=== PATIENT | female | born 1960 | race Hispanic/Latino ===

== ENCOUNTER → 2018-01-23 | Outpatient (CLI) | payer OTHER ==
[~2018-01-23] MED LIST: METFORMIN HCL500 M3; Z.0.LANSOPRAZOLE30 M PO; Z.0.LISINOPRIL20 MG PO; Z.0.METOPROLOL TART2 PO
--- NOTE | 2018-01-23 15:28 | Diagnostic Imaging Report ---
PROCEDURE:X-RAY UNILATERAL RIBS WITH CHEST X-RAY COMPARISON:None. INDICATIONS:RIGHT SIDE RIB PAIN FINDINGS: BONES: Normal mineralization. No acute fracture or dislocation. Joint spaces are within normal limits. SOFT TISSUES:Negative. OTHER:Negative. CONCLUSION: No definite rib fractures. Dictated by: Tima Oakley M.D. on 01/23/2018 at 15:31 Electronically approved by: Tima Oakley M.D. on 01/23/2018 at 15:31
== END ==
LOC: RAD 13:15
PROVIDERS: ATTEND Internal Medicine
DX: R07.89 Other chest pain (principal)
CPT/HCPCS: 71101

== ENCOUNTER → 2018-02-02 | Outpatient (CLI) | payer OTHER | LOC: MAMMO 13:03 | PROVIDERS: ATTEND Internal Medicine | DX: Z12.31 Encounter for screening mammogram for malignant neoplasm of breast (principal) | CPT/HCPCS: 77067 ==

== ENCOUNTER → 2018-02-15 | Outpatient (CLI) | payer OTHER ==
--- NOTE | 2018-02-15 15:13 | Diagnostic Imaging Report ---
#[id number] - MGDXLT #UNILATERAL LEFT DIGITAL DIAGNOSTIC MAMMOGRAM WITH SPOT COMPRESSION: 02/15/2018 Comparison is made to exams dated: 02/02/2018 mammogram and 02/02/2017 mammogram - [facility]. Current study contains 3 films. There are scattered fibroglandular elements in the left breast. Focal spot compression and LLM view confirms a small nodule in the left breast measuring 4 mm. No additional findings in the left breast are seen. IMPRESSION: INCOMPLETE: NEEDS ADDITIONAL IMAGING EVALUATION Indeterminate small nodule in the left breast. Ultrasound is recommended and will be performed today. Flaquito Rm Jr., D.O. cw/:02/15/2018 12:20:22 Manufacturing Plant Technician: Rocio COWAN)(M), [facility] letter sent: Additional Imaging Needed Mammogram BI-RADS: 0 Indeterminate
--- NOTE | 2018-02-15 15:13 | Diagnostic Imaging Report ---
#[id number] - USBRELIMLT ULTRASOUND OF THE LEFT BREAST : 02/15/2018 Comparison is made to exams dated: 02/15/2018 mammogram and 02/02/2018 mammogram - [facility]. Color flow and real-time ultrasound were performed on the left breast with scanning from 9 o'clcok to 3 o'clock. At the 12 o'clock position 1 cm from the nipple is a hypechoic nodule measuring 3 x 2 x 3 mm in size. This may represent a septated cyst or lymph node. A suspicious mass is less likely. However, since it is a new finding on the recent mammogram close follow up is required. IMPRESSION: PROBABLY BENIGN - FOLLOW-UP RECOMMENDED A follow-up left breast mammogram and an ultrasound in 6 months is recommended to demonstrate stability. The patient was notified of these findings at the time of interpretation. Flaquito Rm Jr., D.O. cw/:02/15/2018 13:23:57 Restaurant District Manager: ÓSCAR DENT, [facility] letter sent: Followup Recommended Ultrasound BI-RADS: 3 Probably benign
== END ==
LOC: MAMMO 10:23
PROVIDERS: ATTEND Internal Medicine
DX: N63.20 Unspecified lump in the left breast, unspecified quadrant (principal)

== ENCOUNTER → 2018-08-28 | Outpatient (CLI) | payer OTHER ==
--- NOTE | 2018-08-29 08:15 | Diagnostic Imaging Report ---
#[id number] - MGDXLT #UNILATERAL LEFT DIGITAL DIAGNOSTIC MAMMOGRAM WITH CAD SHORT-TERM FOLLOW-UP: 08/28/2018 Comparison is made to exams dated: 02/15/2018 ultrasound, 02/15/2018 mammogram, 02/02/2018 mammogram and 02/02/2017 mammogram - [facility]. Current study contains 3 films. There are scattered fibroglandular elements in the left breast. Current study was also evaluated with a Computer Aided Detection (CAD) system. There are several nodules around the nipple. No significant masses, calcifications, or other findings are seen in the breast. IMPRESSION: INCOMPLETE: NEEDS ADDITIONAL IMAGING EVALUATION Follow-up breast ultrasound is recommended and will be performed today. Flaquito Rm Jr., D.O. cw/:08/28/2018 15:23:26 Hospice Care Transitions Coordinator: Rocio COWAN)(M), [facility] Mammogram BI-RADS: 0 Indeterminate
--- NOTE | 2018-08-29 08:16 | Diagnostic Imaging Report ---
#[id number] - USBRELIMLT ULTRASOUND OF THE LEFT BREAST : 08/28/2018 Comparison is made to exams dated: 08/28/2018 mammogram, 02/15/2018 ultrasound and 02/15/2018 mammogram - [facility]. Color flow and real-time ultrasound were performed on the left breast in the area in question around the 12 o'clock position. -Stable appearance of 4 x 3 x 4 mm nodule 1 cm from the nipple -At 12 o'clock 4 cm from the nipple there is a benign appearing hypoechoic nodule measuring 6 x 2 x 6 mm. Faint associated calcification present. -At 12 o'clock 6 cm from the nipple there is a benign appearing hypoechoic nodule measuring 5 x 2 x 6 mm. IMPRESSION: PROBABLY BENIGN - FOLLOW-UP RECOMMENDED A follow-up mammogram (bilateral) and an ultrasound in 6 months is recommended to demonstrate stability. The patient was notified of these findings at the time of the examination. Flaquito Rm Jr., D.O. cw/:08/28/2018 15:19:30 Cartridge Maker: Ngoc Kelly RDMS, [facility] letter sent: Followup Recommended Ultrasound BI-RADS: 3 Probably benign
== END ==
LOC: MAMMO 08:39
PROVIDERS: ATTEND Internal Medicine
DX: R92.8 Other abnormal and inconclusive findings on diagnostic imaging of breast (principal)

== ENCOUNTER 2018-11-15 17:52 | Emergency (ER) | payer OTHER ==
[~2018-11-15] VITALS: Ht 160 cm; Wt 83.5 kg
--- OUTSIDE RECORDS SUMMARY | 2018-11-15 17:54 | XMS REPORT ---
Author Author [facility] Address Unknown Phone Unavailable Care Team Providers Care Flag Maker Name Role Phone Ken CASTRO Unavailable Unavailable Problems This patient has no known problems. Allergies, Adverse Reactions, Alerts This patient has no known allergies or adverse reactions. Medications This patient has no known medications. Results Test Description Test Time Test Comments Text Results Atomic Results Result Comments US BREAST LIMITED LEFT 2018-08-28 10:22:00 [place] [address] Patient Name: MARY JEAN MR #: [id number] : 1960 Age/Sex: 58/F Req #: [id number] Adm Physician: Ordered by: NIKKO CASTRO MD Report #: [id number] Location: MAMMO Room/Bed: Procedure: [id number] US/US BREAST LIMITED LEFT Exam Date: Exam Time: REPORT STATUS: Signed #[id number] - USBRELIMLT ULTRASOUND OF THE LEFT BREAST : 08/28/2018 Comparison is made to exams dated: 08/28/2018 mammogram, 02/15/2018 ultrasound and 02/15/2018 mammogram - [facility]. Color flow and real-time ultrasound were performed on the left breast in the area in question around the 12 o'clock position. -Stable appearance of 4 x 3 x 4 mm nodule 1 cm from the nipple -At 12 o'clock 4 cm from the nipple there is a benign appearing hypoechoic nodule measuring 6 x 2 x 6 mm. Faint associated calcification present. -At 12 o'clock 6 cm from the nipple there is a benign appearing hypoechoic nodule measuring 5 x 2 x 6 mm. IMPRESSION: PROBABLY BENIGN - FOLLOW-UP RECOMMENDED A follow-up mammogram (bilateral) and an ultrasound in 6 months is recommended to demonstrate stability. The patient was notified of these findings at the time of the examination. Dottie Rm Jr., D.O. cw/:08/28/2018 15:19:30 Plumber'S Helper: Ngoc Kelly [facility], [facility] letter sent: Followup Recommended Ultrasound BI-RADS: 3 Probably benign Dictated By: DOTTIE RM DO 18 Transcribed By: ROBBY on 08/28/181518 COPY TO: NIKKO CASTRO MD MAMMOGRAPHY DIGITAL DX UNI LT 2018-08-28 09:24:00 [place] [address] Patient Name: MARY JEAN MR #: [id number] : 1960 Age/Sex: 58/F Req #: [id number] [facility] Physician: Ordered by: NIKKO CASTRO MD Report #: [id number] Location: MAMMO Room/Bed: Procedure: [id number] MG/MAMMOGRAPHY DIGITAL DX UNI LT Exam Date: 08/28/18 Exam Time: 0843 REPORT STATUS: Signed #[id number] - MGDXLT #UNILATERAL LEFT DI GITAL DIAGNOSTIC MAMMOGRAM WITH CAD SHORT-TERM FOLLOW-UP: 08/28/2018 Comparison is made to exams dated: 02/15/2018 ultrasound, 02/15/2018 mammogram, 02/02/2018 mammogram and 02/02/2017 mammogram - [facility]. Current study contains 3 films. There are scattered fibroglandular elements in the left breast. Current study was also evaluated with a Computer Aided Detection (CAD) system. There are several nodules around the nipple. No significant masses, calcifications, or other findings are seen in the breast. IMPRESSION: INCOMPLETE: NEEDS ADDITIONAL IMAGING EVALUATION Follow-up breast ultrasound is recommended and will be performed today. Dottie Rm Jr., D.O. cw/:08/28/2018 15:23:26 Plumber'S Helper: Rocio MENG(Lam)(Ken), [facility] Mammogram BI-RADS: 0 Indeterminate Dictated By: DOTTIE RM DO 1523 Transcribed By: ROBBY on 08/28/18 1523 COPY TO: NIKKO CASTRO MD US BREAST LIMITED LEFT 2018-02-15 11:44:00 [place] [address] Patient Name: MARY JEAN MR #: [id number] : 1960 Age/Sex: 57/F Req #: [id number] Adm Physician: Ordered by: NIKKO CASTRO MD Report #: [id number] Location: MAMMO Room/Bed: Procedure: [id number] US/US BREAST LIMITED LEFT Exam Date: Exam Time: REPORT STATUS: Signed #[id number] [facility] : 02/15/2018 Comparison is made to exams dated: 02/15/2018 mammogram and 02/02/2018 mammogram - [facility]. Color flow and real-time ultrasound were performed on the left breast with scanning from 9 o'clcok to 3 o'clock. At the 12 o'clock position 1 cm from the nipple is a hypechoic nodule measuring 3 x 2 x 3 mm in size. This may represent a septated cyst or lymph node. A suspicious mass is less likely. However, since it is a new finding on the recent mammogram close follow up is required. IMPRESSION: PROBABLY BENIGN - FOLLOW-UP RECOMMENDED A follow-up left breast mammogram and an ultrasound in 6 months is recommended to demonstrate stability. The patient was notified of these findings at the time of inter pretation. Dottie Rm Jr., D.O. cw/:02/15/2018 13:23:57 Plumber'S Helper: ÓSCAR DENT [facility] letter sent: Followup Recommended Ultrasound BI-RADS: 3 Probably benign Dictated By: DOTTIE RM DO 1323 Transcribed By: ROBBY on 02/15/18 1323 COPY TO: NIKKO CASTRO MD MAMMOGRAPHY DIGITAL DX [facility] 2018-02-15 11:00:00 [place] [address] Patient Name: MARY JEAN MR #: [id number] : 1960 Age/Sex: 57/F Req #: [id number] [facility] Physician: Ordered by: NIKKO CASTRO MD Report #: [id number] Location: MAMMO Room/Bed: Procedure: [id number] MG/MAMMOGRAPHY DIGITAL DX UNI LT Exam Date: 02/15/18 Exam Time: 1033 REPORT STATUS: Signed #[id number] - MGDXLT #UNILATERAL LEFT DIGITAL DIAGNOSTIC MAMMOGRAM WITH SPOT COMPRESSION: 02/15/2018 Comparison is made to exams dated: 02/02/2018 mammogram and 02/02/2017 mammogram - [facility]. Current study contains 3 films. There are scattered fibroglandular elements in the left breast. Focal spot compression and LLM view confirms a small nodule in the left breast measuring 4 mm. No additional findings in the left breast are seen. IMPRESSION: INCOMPLETE: NEEDS ADDITIONAL IMAGING EVALUATION Indeterminate small nodule in the left breast. Ultrasound is recommended and will be performed today. Dottie Rm Jr., D.O. cw/:02/15/2018 12:20:22 Plumber'S Helper: Rocio COWAN)(Ken), [facility] letter sent: Walter tional Imaging Needed Mammogram BI-RADS: 0 Indeterminate Dictated By: DOTTIE RM DO 1220 Transcribed By: ROBBY on 02/15/18 1220 COPY TO: NIKKO CASTRO MD MAMMOGRAPHY DIGITAL SCR BILAT 2018-02-02 13:53:00 [place] [address] Patient Name: MARY JEAN MR #: [id number] : 1960 Age/Sex: 57/F Req #: [id number] Adm Physician: Ordered by: NIKKO CASTRO MD Report #: [id number] Location: MAMMO Room/Bed: Procedure: [id number] MG/MAMMOGRAPHY DIGITAL SCR BILAT Exam Date: 02/02/18 Exam Time: 1330 REPORT STATUS: Signed #[id number] - MGSCRBIL #BILATERAL DIGITAL SCREENING MAMMOGRAM WITH CAD: 02/02/2018 CLINICAL: Routine screening. Comparison is made to exams dated: 02/02/2017 mammogram and 01/02/2016 mammogram - [facility]. Current study contains 4 films. There are scattered fibroglandular elements in both breasts. Current study was also evaluated with a Computer Aided Detection (CAD) system. There is a possible 3 mm oval mass in the left breast at 1 o'clock middle depth. There is benign calcification in the right breast. No other significant masses, calcifications, or other findings are seen in either breast. IMPRESSION: INCOMPLETE: NEEDS ADDITIONAL IMAGING EVALUATION The possible 3 mm oval mass in the left breast is indeterminate. Spot compression view as well as a dditional views with possible ultrasound are recommended. The patient will be contacted by the Mammography Department to schedule this appointment. Dottie Rm Jr., D.O. cw/:02/08/2018 11:53:54 Plumber'S Helper: BIANKA LANCSATER [facility] letter sent: Additional Imaging Needed Mammogram BI-RADS: 0 Indeterminate Dictated By: DOTTIE RM DO 1153 Transcribed By: ROBBY on 02/08/18 1153 COPY TO: NIKKO CASTRO MD [facility] UNIL W/CXR [place] [address] Patient Name: MARY JEAN MR #: [id number] : 1960 Age/Sex: 57/F Req #: [id number] Adm Physician: Ordered by: NIKKO CASTRO MD Report #: [id number] Location: RAD Room/Bed: Procedure: [id number] DX/RIBS UNILAT W/CXR Exam Date: 01/23/18 Exam Time: 1350 REPORT STATUS: Signed PROCEDURE: X-RAY UNILATERAL RIBS WITH CHEST X-RAY COMPARISON: None. INDICATIONS: RIGHT SIDE RIB PAIN FINDINGS: BONES: Normal mineralization. No acute fracture or dislocation. Joint spaces are within normal limits. SOFT TISSUES: Negative. OTHER: Negative. CONCLUSION: No definite rib fractures. Dictated by: Xiomara Dyer M.D. on 01/23/2018 at 15:31 Electronically approved by: Xiomara Dyer M.D. on 01/23/2018 at 15:31 Dictated By: XIOMARA DYER MD 1531 Transcribed By: BEN on 01/23/18 1531 COPY TO: NIKKO CASTRO MD
[2018-11-15] MEDS ORDERED: ASPIRIN 81 MG CHEW TAB PO ONE (19:00)
[2018-11-15] MEDS ORDERED: ASPIRIN 81 MG CHEW TAB PO PRN (19:15)
[2018-11-15 19:44] LABS: CLARITY,URINE SL CLOUDY (CLEAR); COLOR,URINE YELLOW (YELLOW)
[2018-11-15 19:45] LABS: BILIRUBIN,URINE NEGATIVE (NEGATIVE); KETONES,URINE NEGATIVE (NEGATIVE); LEUKOCYTE ESTERASE ,URINE 1+ (NEGATIVE); NITRITE,URINE NEGATIVE (NEGATIVE); PROTEIN,URINE DIPSTICK NEGATIVE (NEGATIVE); URINE UROBILINOGEN 0.2 mg/dL (0.2 - 1)
[2018-11-15 19:57] LABS: BACTERIA,URINE MANY /HPF; EPITHELIAL CELLS,URINE RARE /LPF
--- NOTE | 2018-11-15 20:08 | NUR ---
X-RAY AT BEDSIDE FOR CXR AT THIS TIME.
[2018-11-15 20:29] LABS: BASOPHILS # (AUTO) 0.1 (0.0-0.1); BASOPHILS % 0.4 % (0.0-1.0); EOSINOPHILS # (AUTO) 0.2 (0.0-0.4); EOSINOPHILS % 1.8 % (0.0-6.0); HEMATOCRIT 42.4 % (34.2-44.1); HEMOGLOBIN 14.1 g/dL (12.0-16.0); LYMPHOCYTES # (AUTO) 3.5 (1.0-3.2); LYMPHOCYTES % 28.2 % (18.0-39.1); MEAN CORPUSCULAR HEMOGLOBIN 29.7 pg (28-32); MEAN CORPUSCULAR HGB CONC 33.3 g/dL (31-35); MEAN CORPUSCULAR VOLUME 89.5 fL (81-99); MONOCYTES # (AUTO) 0.9 (0.2-0.8); MONOCYTES % 7.2 % (4.4-11.3); NEUTROPHILS # (AUTO) 7.6 (2.1-6.9); NEUTROPHILS % 61.8 % (38.7-80.0); PLATELET COUNT 268 x10e3/uL (140-360); RED BLOOD COUNT 4.74 x10e6/uL (3.6-5.1); RED CELL DISTRIBUTION WIDTH 13.7 % (11.7-14.4)
[2018-11-15 20:36] LABS: INR 0.94; PROTHROMBIN TIME 13.1 seconds (11.9-14.5)
--- NOTE | 2018-11-15 20:39 | Diagnostic Imaging Report ---
EXAMINATION: CHEST SINGLE (PORTABLE) COMPARISON: None INDICATION: ^CHEST PAIN ^Y DISCUSSION: Frontal view of the chest obtained at 2010 hours. HEART AND MEDIASTINUM: The cardiomediastinal silhouette is unremarkable. LINES: None. LUNGS: The lungs are well inflated and clear. No pneumonia or pulmonary edema. PLEURA: No pleural effusion or pneumothorax. BONES AND SOFT TISSUES: No focal osseous lesion. The soft tissues are normal. IMPRESSION: No acute cardiopulmonary disease. Signed by: Dr. Ajit Arias MD on 11/15/2018 8:35 PM
[2018-11-15 20:46] LABS: ALANINE AMINOTRANSFERASE 29 IU/L (0-55); ALBUMIN/GLOBULIN RATIO 1.2 (0.8-2.0); ALKALINE PHOSPHATASE 101 IU/L (40-150); ANION GAP 11.7 mmol/L (8-16); BLOOD UREA NITROGEN 13 mg/dL (7-26); BUN/CREATININE RATIO 18 (6-25); CALCIUM 9.9 mg/dL (8.4-10.2); CARBON DIOXIDE 25 mmol/L (22-29); CHLORIDE 105 mmol/L (98-107); CREATINE KINASE 128 IU/L (29-168); CREATININE, SERUM 0.74 mg/dL (0.57-1.11); EST GLOMERULAR FILTRATION RATE > 60 ML/MIN (60-); GLUCOSE 91 mg/dL (74-118); POTASSIUM 3.7 mmol/L (3.5-5.1); SODIUM 138 mmol/L (136-145)
[2018-11-15 21:05] VITALS: BP 147/77
== END 2018-11-15 21:30 | disposition home or self-care (01) ==
LOC: ER 17:52
DX: R07.89 Other chest pain (principal); E11.9 Type 2 diabetes mellitus without complications; I10 Essential (primary) hypertension; E78.5 Hyperlipidemia, unspecified; K76.0 Fatty (change of) liver, not elsewhere classified; N30.91 Cystitis, unspecified with hematuria; Z79.84 Long term (current) use of oral hypoglycemic drugs
CPT/HCPCS: 36415; 71045; 80053; 81001; 82550; 82553; 83880; 84484; 85025; 85610; 85730; 93005; 99284

== ENCOUNTER → 2019-03-02 | Outpatient (CLI) | payer OTHER ==
--- NOTE | 2019-03-02 09:11 | Diagnostic Imaging Report ---
Exam: Pelvic ultrasound. History: Pelvic pain. Comparison: None. Findings: Transabdominal sonographic evaluation of the pelvis. Examination is markedly limited secondary to bowel gas. Uterus and bilateral ovaries are not visualized. No evidence of free fluid. The bladder is decompressed. Impression: Examination is markedly limited secondary to bowel gas. Uterus and bilateral ovaries are not visualized. No evidence of free fluid. Signed by: Dr. Power Nicholson MD on 03/02/2019 9:07 AM
--- NOTE | 2019-03-02 09:24 | Diagnostic Imaging Report ---
EXAM: US ABDOMEN COMPLETE INDICATION: Abdominal pain COMPARISON: None TECHNIQUE: Transverse and longitudinal downey scale and color doppler sonographic images of the abdomen were obtained. FINDINGS: LIVER 13.7 cm in the right midclavicular line. Increased echogenicity of the liver with normal contour, no masses. SPLEEN 8.7 cm in maximum diameter. Normal echogenicity, no masses. GALLBLADDER Status post cholecystectomy. BILE DUCTS No intra nor extra-hepatic biliary dilation. Common bile duct measures 0.3 cm PANCREAS: Visualized portions are normal. RIGHT KIDNEY: Measures 11.6 cm Echogenicity: Normal Collecting System: No hydronephrosis Stones: None Cyst/Mass: None LEFT KIDNEY: Measures 11.5 cm Echogenicity: Normal Collecting System: No hydronephrosis Stones: None Cyst/Mass: None VESSELS: Aorta: Visualized portions are within normal size limits Inferior Vena Cava: Visualized portions are normal Main Portal Vein: 0.9 cm, normal size with hepatopetal flow. FREE FLUID: None IMPRESSION: Hepatic steatosis. Status post cholecystectomy. Signed by: Dr. Power Nicholson MD on 03/02/2019 9:20 AM
--- NOTE | 2019-03-05 08:40 | Diagnostic Imaging Report ---
#[id number] - MGDXBIL #BILATERAL DIGITAL DIAGNOSTIC MAMMOGRAM WITH CAD SHORT-TERM FOLLOW-UP: 03/02/2019 Comparison is made to exams dated: 08/28/2018 ultrasound, 08/28/2018 mammogram, 02/15/2018 ultrasound, 02/15/2018 mammogram and 02/02/2018 mammogram - [facility]. Current study contains 6 films. There are scattered fibroglandular elements in both breasts. Current study was also evaluated with a Computer Aided Detection (CAD) system. There are 3 benign appearing masses ranging from 4 to 7 mm in the left breast superiorly which are stable and correspond to the ultrasound findings. No significant masses, calcifications, or other findings are seen in either breast. IMPRESSION: BENIGN There is no mammographic evidence of malignancy. A 1 year screening mammogram is recommended. See report for breast ultrasound performed on the same day for additional details. The patient will be notified by letter of the results. DIANE MEHTA M.D. ct/:03/02/2019 12:59:22 Windsmith: Rocio MENG(R)(Ken), [facility] letter sent: Compared to Prior B9 Mammogram BI-RADS: 2 Benign
--- NOTE | 2019-03-05 08:41 | Diagnostic Imaging Report ---
#[id number] - USBRELIMLT ULTRASOUND OF THE LEFT BREAST : 03/02/2019 Comparison is made to exams dated: 03/02/2019 mammogram, 08/28/2018 ultrasound and 02/15/2018 ultrasound - [facility]. Real-time ultrasound was performed on the left breast. The 3 hypoechoic masses in the left breast are stable and benign - 12:00 1 cm from the nipple - 5 x 2 x 4 mm 12:00 4 cm from the nipple - 6 x 2 x 6 mm 12:00 6 cm from the nipple - 6 x 2 x 5 mm IMPRESSION: BENIGN There is no sonographic evidence of malignancy. A 1 year screening mammogram is recommended. DIANE MEHTA M.D. ct/:03/02/2019 13:02:47 Election Watcher: Ngoc Kelly [facility], [facility] letter sent: Normal Exam Ultrasound BI-RADS: 2 Benign
== END ==
LOC: US 07:12
PROVIDERS: ATTEND Internal Medicine
DX: N64.4 Mastodynia (principal); R10.9 Unspecified abdominal pain; R10.2 Pelvic and perineal pain
CPT/HCPCS: 76700; 76830; 76856; 77066

== ENCOUNTER → 2019-04-03 | Outpatient (CLI) | payer OTHER ==
[~2019-04-03] MED LIST changes: +IOPAMIDOL 370 MG/ML 200 ML INFUS..BTL INJ ONE; +SODIUM CHLORIDE 0.9% 50ML 50 ML ONE
[2019-04-03 16:42] LABS: BLOOD UREA NITROGEN 11 mg/dL (7-26); BUN/CREATININE RATIO 15 (6-25); CREATININE, SERUM 0.75 mg/dL (0.57-1.11); EST GLOMERULAR FILTRATION RATE > 60 ML/MIN (60-)
--- NOTE | 2019-04-03 17:14 | Diagnostic Imaging Report ---
EXAM: CT Abdomen WITH intravenous contrast INDICATION: Abdominal pain COMPARISON: None. TECHNIQUE: Abdomen was scanned utilizing a multidetector helical scanner from the lung base to the pubic symphysis after administration of IV contrast. Coronal and sagittal reformations were obtained. Routine protocol was performed. Scan was performed when during portal venous phase. IV CONTRAST: 100mL of Isovue 370 ORAL CONTRAST: Water COMPLICATIONS: None RADIATION DOSE: Total DLP: 480.2 mGy*cm Dose modulation, iterative reconstruction, and/or weight based adjustment of the mA/kV was utilized to reduce the radiation dose to as low as reasonably achievable. FINDINGS: LOWER THORAX: Mild bilateral basilar dependent subsegmental atelectasis. HEPATOBILIARY: Diffuse hepatic steatosis. No focal liver lesion. Status post cholecystectomy. SPLEEN: No splenomegaly. PANCREAS: No focal masses or ductal dilatation. ADRENALS: No adrenal nodules. KIDNEYS/URETERS: Bilateral simple renal cysts, the largest measuring up to 1.3 cm at the upper pole of the left kidney. No renal calculi or hydronephrosis. PERITONEUM / RETROPERITONEUM: No free air or fluid. LYMPH NODES: No lymphadenopathy. VESSELS: Unremarkable. GI TRACT: No abnormal bowel thickening. No bowel obstruction. Normal appendix. BONES AND SOFT TISSUES: Grade 1 anterolisthesis at L4-5. No suspicious lytic or blastic lesions. No acute osseous injury. IMPRESSION: No acute findings in the abdomen or pelvis. Hepatic steatosis. Signed by: Aj Murcia MD on 04/03/2019 5:11 PM
== END ==
LOC: CT 15:50
PROVIDERS: ATTEND Internal Medicine
DX: R10.9 Unspecified abdominal pain (principal)
CPT/HCPCS: 36415; 74160; 82565; 84520; Q9967

== ENCOUNTER → 2020-04-04 | Outpatient (CLI) | payer OTHER ==
[~2020-04-04] MED LIST changes: -IOPAMIDOL 370 MG/ML 200 ML INFUS..BTL INJ ONE; -SODIUM CHLORIDE 0.9% 50ML 50 ML ONE
--- NOTE | 2020-04-09 13:41 | Diagnostic Imaging Report ---
#[id number] - MGSCRBIL #BILATERAL DIGITAL SCREENING MAMMOGRAM WITH CAD: 04/04/2020 CLINICAL: Routine screening. Comparison is made to exams dated: 03/02/2019 mammogram, 08/28/2018 mammogram and 02/15/2018 mammogram - [facility]. There are scattered fibroglandular elements in both breasts. Current study was also evaluated with a Computer Aided Detection (CAD) system. There are benign vascular calcifications and calcifications in the right breast. There also is a benign intramammary node and a lymph node in the left breast. No significant masses, calcifications, or other findings are seen in either breast. There has been no significant interval change. IMPRESSION: BENIGN There is no mammographic evidence of malignancy. A 1 year screening mammogram is recommended. The patient will be notified by letter of the results. ACE kelley/key:04/09/2020 11:12:14 Well Logging Captain: Rocio MENG(R)(M), [facility] letter sent: Compared to Prior B9 Mammogram BI-RADS: 2 Benign
== END ==
LOC: MAMMO 13:37
PROVIDERS: ATTEND Internal Medicine
DX: Z12.31 Encounter for screening mammogram for malignant neoplasm of breast (principal)
CPT/HCPCS: 77067